=== PATIENT | male | born 1980 | race Caucasian/White ===

== ENCOUNTER 2022-05-06 08:31 | Day surgery (SDC) | payer MEDICARE, MEDICAID ==
[~2022-05-06] VITALS: Ht 182.9 cm; Wt 106.8 kg
[~2022-05-06 08:31] MED LIST: IBUP-1984 PO; LEVA15HF4 IH; LEVA15HF4 INH; PRED50TA PO
[2022-05-06] MEDS ORDERED: ALBU18HF2 INH (08:46)
[2022-05-06] MEDS ORDERED: fentaNYL/PF 50MCG/1 ML 2ML syringe ONE (08:48)
[2022-05-06] MEDS ORDERED: MIDAZolam 1 MG/ML 5ML VIAL ONE (08:49)
[2022-05-06] MEDS ORDERED: LIDOcaine Viscous 15ml cup ONE (08:49)
[2022-05-06] MEDS ORDERED: FLUT1BLS16 INH (08:50)
[2022-05-06] MEDS ORDERED: OMEP20CA16 PO (08:50)
[2022-05-06 09:08] VITALS: BP 166/106
[2022-05-06 10:20] VITALS: BP 145/91
[2022-05-06 10:30] VITALS: BP 148/85
[2022-05-06 10:40] VITALS: BP 128/86
[2022-05-06 10:50] VITALS: BP 145/87
== END 2022-05-06 11:05 | disposition home or self-care (01) ==
LOC: GI LAB 08:31
PROVIDERS: ATTEND Internal Medicine Gastroenterology
DX: R13.10 Dysphagia, unspecified (principal); K44.9 Diaphragmatic hernia without obstruction or gangrene; Z68.33 Body mass index [BMI] 33.0-33.9, adult
CPT/HCPCS: 43239; G0500; J2250; J3010; J7030; Z7512; 88305; 88342; 99152; 99153; A4620